=== PATIENT | female | born 1985 | race Caucasian/White ===

== ENCOUNTER 2016-09-04 09:54 | Emergency (ER) | payer OTHER ==
[~2016-09-04] VITALS: Ht 162.6 cm; Wt 68.0 kg
[2016-09-04 09:55] VITALS: BP 108/77
--- NOTE | 2016-09-04 10:11 | ED NECK/BACK PAIN COMPLAINT ---
History of Present Illness General Chief Complaint: Low Back Pain/Injury Stated Complaint: LOWER BACK PAIN Source: patient Exam Limitations: no limitations Vital Signs & Intake/Output Vital Signs & Intake/Output Vital Signs Date Time Temp Pulse Resp B/P B/P Pulse O2 O2 Flow FiO2 Mean Ox Delivery Rate 09/04 0955 98.3 89 16 108/77 99 Room Air Allergies Coded Allergies: No Known Allergies (09/04/16) Triage Note: 31 Y/O FEMALE C/O LOW BACK PAIN RADIATING DOWN R LEG; ONSET YESTERDAY AFTER BENDING DOWN. STATES SHE TOOK ALEVE THIS AM AND THEN TOOK 5MG FLEXERIL AROUND 0920 WITH SOME RELIEF. DENIES URINARY SYMPTOMS. CURRENTLY Triage Nurses Notes Reviewed? yes : No Patient currently breastfeeds: No HPI: Patient presents for evaluation of low back pain. Past History Travel History Traveled to [place] past 21 day No Medical History Any Pertinent Medical History? see below for history Neurological: NONE EENT: NONE Cardiovascular: NONE Respiratory: pulmonary embolism Gastrointestinal: NONE Hepatic: NONE Renal: NONE Musculoskeletal: NONE Psychiatric: NONE Endocrine: NONE Blood Disorders: NONE Cancer(s): NONE C.O.D. CLERK/Reproductive: NONE Surgical History Surgical History: non-contributory Psychosocial History What is your primary language [place] Tobacco Use: Never used Family History Hx Contributory? No Review of Systems Review of Systems Constitutional: Reports: no symptoms. Eyes: Reports: no symptoms. Ears, Nose, Throat, Mouth: Reports: no symptoms. Respiratory: Reports: no symptoms. Cardiovascular: Reports: no symptoms. Gastrointestinal/Abdominal: Reports: no symptoms. Musculoskeletal: Reports: see HPI. Skin: Reports: no symptoms. Neurological/Psychological: Reports: no symptoms. All Other Systems: Reviewed and Negative Physical Exam Physical Exam Neck: see below Comments: Gen.: Well-nourished, well-developed, no acute respiratory distress. Head: Normocephalic, atraumatic. Eyes: Normal inspection bilaterally Ears: Normal inspection bilaterally Nose: Normal inspection Throat/mouth : Moist mucosa Neck: Supple, full range of motion, no goiter Lungs: Quiet respirations Back: Nontender over the lumbosacral spine, no soft tissue swelling ecchymosis or erythema, tenderness over the sacroiliac regions bilaterally, patient bends to nearly 90 but has low back pain Abdomen: Soft, nontender, nondistended, normal bowel sounds Extremities: Normal range of motion grossly, no cyanosis clubbing or edema, lower extremities: Deep tendon reflexes normal, sensation to light touch normal, no saddle paresthesia present, normal strength Neurologic: Cranial nerves grossly intact, speech is clear Skin: warm and dry Psychiatric: Calm, cooperative, no apparent delusions or hallucinations Progress Differential Diagnosis: cauda equina syn, herniated disc, myofascial strain, sciatica Plan of Care: Anti-inflammatory, muscle relaxant Comments: I have notified Marisol of the question of safety of the orphenadrine during breast-feeding. She states she will not breast-feed while she is taking the medications. Departure Departure Disposition: HOME OR SELF CARE Condition: Stable Clinical Impression Primary Impression: Low back strain Qualifiers: Encounter type: initial encounter Qualified Code: S39.012A - Strain of muscle, fascia and tendon of lower back, initial encounter Referrals: LISSA MONGE,ASHLEIGH HARO (PCP/Family) Additional Instructions: Rest, no exertion or heavy lifting. Ibuprofen as prescribed for pain, orphenadrine as prescribed for muscle relaxation. Follow-up with your primary care physician in one week if not improving. Return if any concerns or sudden worsening. Thank you for choosing the [facility] for your care. It was a pleasure to serve you today. Arsen Ryder M.D. [facility] Departure Forms: Customer Survey General Discharge Information Prescriptions: Current Visit Scripts Ibuprofen 1 TAB PO Q6P PRN PAIN #28 TAB with food Orphenadrine Citrate 1 TAB PO BID PRN MUSCLE PAIN/SPASMS #14 TAB
[2016-09-04] MEDS ORDERED: IBUPROFEN600 M1 PO (10:38)
[2016-09-04] MEDS ORDERED: ORPHENADRINE C100 MG PO (10:38)
[2016-09-04] MEDS ORDERED: LEVOTHYROXINE75 MCG PO (10:43)
== END 2016-09-04 10:51 ==
LOC: ERH 09:54
DX: S39.012A Strain of muscle, fascia and tendon of lower back, initial encounter (principal); X50.9XXA Other and unspecified overexertion or strenuous movements or postures, initial encounter; Y93.89 Activity, other specified; Y92.9 Unspecified place or not applicable